=== PATIENT | female | born 1955 | race Caucasian/White ===

== ENCOUNTER 2023-03-11 14:19 | Emergency (ER) | payer MEDICARE ==
[~2023-03-11] VITALS: Ht 170.2 cm; Wt 81.6 kg
[~2023-03-11 14:19] MED LIST: LEVO50CA4 PO; LORA2TAB80 PO
[2023-03-11 17:28] VITALS: BP 128/77
== END 2023-03-11 17:36 | disposition home or self-care (01) ==
LOC: EDH 14:19
DX: M79.89 Other specified soft tissue disorders (principal); I48.91 Unspecified atrial fibrillation; E78.00 Pure hypercholesterolemia, unspecified; Z88.2 Allergy status to sulfonamides; Z79.899 Other long term (current) drug therapy
CPT/HCPCS: 93971